=== PATIENT | male | born 1980 | race Caucasian/White ===

== ENCOUNTER → 2018-06-22 | Outpatient (CLI) | payer BC ==
--- NOTE | 2018-06-22 14:33 | MR ---
EXAMINATION TYPE: MR brain wo con DATE OF EXAM: 06/22/2018 COMPARISON: NONE HISTORY: Migraine without aura TECHNIQUE: Multiplanar, multisequence images of the brain and brainstem is performed without intravenous contras t. FINDINGS: Diffusion weighted images demonstrate no evidence of a recent infarct or other diffusion ab normality. There is no extra-axial fluid collection. There is mild nonspecific T2/FLAIR hyperintensi ty in the periventricular white matter any periatrial location within the parietal lobe such as on FL AIR and axial fat sat image 21. The ventricular system and cisternal spaces are normal in size and a ppearance. The brain volume is age appropriate. Midline structures demonstrate normal morphology. The craniocervical junction appears within normal limits. The dural venous sinuses appear patent. The globes are intact. There is scant mucosal thicken ing seen within the ethmoid sinuses and minimal leftward nasal septal deviation with a small leftward nasal septal spur. IMPRESSION: 1. Mild periventricular nonspecific white matter change within the parietal lobes, right greater than left. Considerations are for multiple sclerosis, other demyelinating disease given the patient's age or vasculitides. 2. Mild ethmoid paranasal sinus disease.
== END ==
LOC: RADMRIMAIN 12:32
PROVIDERS: ATTEND Psychiatry & Neurology Neurology
DX: R90.89 Other abnormal findings on diagnostic imaging of central nervous system (principal)
CPT/HCPCS: 70551

== ENCOUNTER 2019-06-10 19:38 | Inpatient (IN) | payer BC, OTHER ==
[2019-06-10] MEDS ORDERED: BUTALB/APAP/CAFF 50-325-40MG TAB PO PRN (22:13)
[2019-06-10] MEDS ORDERED: ACETAMINOPHEN TAB 325 MG TAB PO PRN (22:14)
[2019-06-10] MEDS: SODIUM CHLORIDE 0.9% 1,000 ML IV SCH (22:25)
[2019-06-10] MEDS: HYDROcodone/APAP 5-325MG 1 EACH TAB PO PRN (23:34)
[2019-06-11] MEDS: HYDROcodone/APAP 5-325MG 1 EACH TAB PO PRN (06:26)
[2019-06-11 07:07] LABS: Basophils # (A) 0.1 k/uL (0-0.2); Basophils % (A) 1 %; Eosinophils # (A) 0.3 k/uL (0-0.7); Eosinophils % (A) 3 %; HCT 44.8 % (39.0-53.0); HGB 14.1 gm/dL (13.0-17.5); Lymphocytes # (A) 2.8 k/uL (1.0-4.8); Lymphocytes % (A) 29 %; MCH 30.6 pg (25.0-35.0); MCHC 31.4 g/dL (31.0-37.0); MCV 97.3 fL (80.0-100.0); Monocytes # (A) 0.7 k/uL (0-1.0); Monocytes % (A) 7 %; Neutrophils # (A) 5.4 k/uL (1.3-7.7); Neutrophils % (A) 58 %; Platelet Count 195 k/uL (150-450); RDW 12.3 % (11.5-15.5); WBC 9.3 k/uL (3.8-10.6)
[2019-06-11 07:29] LABS: ALT 15 U/L (4-49); AST 25 U/L (17-59); African American GFR (CKD) >90 (>60 ml/min/1.73 sqM); Albumin 4.1 g/dL (3.5-5.0); Alkaline Phosphatase 58 U/L (38-126); Anion Gap 10 mmol/L; Blood Urea Nitrogen 18 mg/dL (9-20); Calcium 8.9 mg/dL (8.4-10.2); Carbon Dioxide 22 mmol/L (22-30); Chloride 110 mmol/L (98-107); Glucose 82 mg/dL (74-99); Non-African American GFR(CKD) >90 (>60 ml/min/1.73 sqM); Potassium 4.6 mmol/L (3.5-5.1); Sodium 142 mmol/L (137-145); Total Bilirubin 0.7 mg/dL (0.2-1.3); Total Protein 7.1 g/dL (6.3-8.2)
--- NOTE | 2019-06-11 08:40 | P.CRDCN ---
History of Present Illness Consult date: 06/11/19 Consult reason: sycope Chief complaint: Syncope History of present illness: This is a 38-year-old gentleman with history of migraines, nicotine dependence, patient's smokes at least one pack of cigarettes per day, he also has a marijuana license, and smokes marijuana because of the persistent migraines. He states that he used to take Imitrex in the past but because of the cost he had to stop taking that. Patient presented to [facility] after experiencing a syncopal episode. According to the patient, on Monday he was getting ready to walk down the stairs, he remembers putting his hand out to hold onto the railing, the next thing he recalls was his son waking him up at the bottom of the stairs area he had also a second subsequent episode with no warning prior to passing out. He denies any dizziness or lightheadedness, no palpitations. But he does state on each occasion that he had a migraine headache on each occasion. Patient states that he is somewhat foggy and disoriented when he wakes up, he knows he is at home, does not lose bowel or bladder function. EKG on presentation to [facility] showed a normal sinus rhythm with no acute changes noted. A CT of the spine was performed which did not reveal any acute findings. Blood pressure on arrival there 129/78, heart rate in the 80s, afebrile. Patient also underwent a CT of the head which did not reveal any acute findings. His UA was normal magnesium 2.0, sodium 141, potassium 3.8, chloride 106, CO2 25, creatinine 0.9. White blood cell count 10.2, hemoglobin 13.9, platelet count 263. Drug screen was also negative. Blu roy was transferred to [facility] for further evaluation and treatment. Blood pressure on arrival here 130/80, heart rate in the 70s, 99% on room air. White blood cell count 9.3, hemoglobin 14.1, platelet count 195. Sodium 142, potassium 4.6, BUN 18, creatinine 0.7. Troponin 0.012. Past Medical History Additional Past Medical History / Comment(s): brachial plexus disorder right arm;migraines History of Any Multi-Drug Resistant Organisms: None Reported Past Surgical History: No Surgical Hx Reported Past Anesthesia/Blood Transfusion Reactions: No Reported Reaction Past Psychological History: Anxiety, Depression Smoking Status: Current every day smoker Medications and Allergies Home Medications Medication Instructions Recorded Confirmed Type Acetaminophen Tab [Tylenol Tab] 650 mg PO Q6H PRN 06/10/19 06/10/19 History Butalb/APAP/Caff 50-325-40Mg 1 - 2 tab PO Q4H PRN 06/10/19 06/10/19 History [Fioricet 50-325-40] Ibuprofen 400 mg PO Q6H PRN 06/10/19 06/10/19 History Naproxen [Naprosyn] 500 mg PO BID PRN 06/10/19 06/10/19 History Ranitidine HCl 150 mg PO HS 06/10/19 06/10/19 History Topiramate [Topamax] 100 mg PO BID 06/10/19 06/10/19 History Allergies Allergy/AdvReac Type Severity Reaction Status Date / Time No Known Allergies Allergy Verified 06/10/19 22:36 Physical Exam Vitals: Vital Signs Temp Pulse Resp BP Pulse Ox 06/11/19 08:00 98.6 F 68 19 106/66 100 06/11/19 03:33 97.7 F 73 16 104/58 96 06/10/19 22:57 98.2 F 75 18 130/82 99 Intake and Output 06/10/19 06/11/19 06/11/19 22:59 06:59 14:59 Intake Total 222 150 Balance 222 150 Intake: Intake, IV Titration 150 Amount Sodium Chloride 0.9% 1, 150 000 ml @ 50 mls/hr IV . Q20H [facility] Rx#:[id number] Oral 222 Other: Weight 85.3 kg 85.2 kg PHYSICAL EXAMINATION: GENERAL: 38-year-old gentleman in no acute distress at the time of my examination HEENT: Head is atraumatic, normocephalic. Pupils equal, round. Sclera anicteric. Conjunctiva are clear. Mucous membranes of the mouth are moist. Neck is supple. There is no elevated jugular venous pressure. No carotid bruit is heard. HEART EXAMINATION: Heart S1, S2 normal. No murmur or gallop heard. CHEST EXAMINATION: Lungs are clear to auscultation and precussion. No chest wall tenderness is noted on palpation or with deep breathing. ABDOMEN: Soft, nontender. Bowel sounds are heard. No organomegaly noted. EXTREMITIES: 2+ peripheral pulses with no evidence of peripheral edema and no calf tenderness noted. NEUROLOGIC patient is awake, alert and oriented 3 . He does complain of a mild headache this morning. . Results 06/11/19 06:16 06/11/19 06:16 Cardiac Enzymes 06/10/19 06/11/19 Range/Units 22:49 06:16 AST 25 (17-59) U/L Troponin I <0.012 (0.000-0.034) ng/mL CBC 06/11/19 Range/Units 06:16 WBC 9.3 (3.8-10.6) k/uL RBC 4.60 (4.30-5.90) m/uL Hgb 14.1 (13.0-17.5) gm/dL Hct 44.8 (39.0-53.0) % Plt Count 195 (150-450) k/uL Comprehensive Metabolic Panel 06/11/19 Range/Units 06:16 Sodium 142 (137-145) mmol/L Potassium 4.6 (3.5-5.1) mmol/L Chloride 110 H (98-107) mmol/L Carbon Dioxide 22 (22-30) mmol/L BUN 18 (9-20) mg/dL Creatinine 0.79 (0.66-1.25) mg/dL Glucose 82 (74-99) mg/dL Calcium 8.9 (8.4-10.2) mg/dL AST 25 (17-59) U/L ALT 15 (4-49) U/L Alkaline Phosphatase 58 (38-126) U/L Total Protein 7.1 (6.3-8.2) g/dL Albumin 4.1 (3.5-5.0) g/dL Current Medications Generic Name Dose Route Start Last Admin Trade Name Freq PRN Reason Stop Dose Admin Acetaminophen 325 mg 06/10/19 22:14 Tylenol Tab PO Q6HR PRN Fever and/ or Pain Acetaminophen/Butalbital/Caffeine 1 each 06/10/19 22:13 06/10/19 22:19 Fioricet 50-325-40 PO 1 each Q4HR PRN Administration Headache Hydrocodone Bitart/Acetaminophen 1 each 06/10/19 23:19 06/11/19 06:26 [place] 5-325 PO 1 each Q6HR PRN Administration Pain Famotidine 20 mg 06/11/19 09:00 Pepcid IV Q12HR KE[facility] Heparin Sodium (Porcine) 5,000 unit 06/11/19 09:00 Heparin SQ Q12HR KE[facility] Sodium Chloride 1,000 mls @ 50 mls/hr 06/10/19 22:15 06/10/19 22:25 Saline 0.9% IV 50 mls/hr .Q20H KEKE Administration Topiramate 100 mg 06/11/19 09:00 Topamax PO DAILY KEKE Intake and Output 06/10/19 06/11/19 06/11/19 22:59 06:59 14:59 Intake Total 222 150 Balance 222 150 Intake: Intake, IV Titration 150 Amount Sodium Chloride 0.9% 1, 150 000 ml @ 50 mls/hr IV . Q20H [facility] Rx#:[id number] Oral 222 Other: Weight 85.3 kg 85.2 kg 06/11/19 06:16 06/11/19 06:16 EKG Interpretations (text) EKG performed at [facility] shows a normal sinus rhythm with no acute changes. Assessment and Plan Plan: Assessment and plan #1 syncopal episode 2, each episode associated with migraine headache, rule out cardiac causes #2 nicotine dependence #3 marijuana use #4 brachial plexus Plan We will obtain an echocardiogram with Doppler study, obtain orthostatic blood pressure and heart rate every shift. Monitor for any tachycardia or bradycardia arrhythmias. Patient may also benefit from a tilt table test. Further recommendations to follow. DNP note has been reviewed, I agree with a documented findings and plan of care. Patient was seen and examined.
[2019-06-11] MEDS ORDERED: FAMOTIDINE 20 MG/2 ML VIAL IV SCH (09:00)
[2019-06-11] MEDS ORDERED: TOPIRAMATE 100 MG TAB PO SCH ×2 (09:00→21:00)
[2019-06-11] MEDS: HEPARIN SODIUM,PORCINE 5,000 UNIT/ML 1 ML VIAL SQ SCH ×2 (10:28→20:18)
[2019-06-11] MEDS ORDERED: diphenhydrAMINE 25 MG CAP PO STA (11:22)
[2019-06-11] MEDS ORDERED: SUMAtriptan SUCCINATE 6 MG/0.5 ML VIAL SQ STA (11:25)
[2019-06-11] MEDS: METOCLOPRAMIDE 5 MG/ML 2 ML VIAL IVP SCH ×3 (12:41→23:18)
--- NOTE | 2019-06-11 13:24 | P.HPIM ---
History of Present Illness 38-year-old male came in because of her syncope patient in couple syncopal episodes. These syncopal episodes were followed by severe headache patient does have history of migraine with aura. Patient does have photophobia. Patient is on multiple medications with uncontrolled migraine. History of chronic migraines as he has migraine most of the days in a month. Patient is on 2 nonsteroidal anti-inflammatories along with Fioricet [place] Topamax for migraine. Patient denied any fever chills. Patient had an dysuria. EKG did not show any significant acute ST-T wave changes echocardiogram is being obtained computed tomography scan of the spine was opted which did not show any significant abnormality computed tomography scan was opted because of his fall from syncope patient fall is preceded by lightheadedness and he didn't have an of time to sit down for that he ended up having a syncopal episode which lasted for few s econds. Patient denied any seizure-like activity. CT of the head did not show any significant abnormality either. Review of Systems REVIEW OF SYSTEMS: CONSTITUTIONAL: No fever, no malaise, no fatigue. HEENT: No recent visual problems or hearing problems. Denied any sore throat. CARDIOVASCULAR: No chest pain, orthopnea, PND, no palpitations. PULMONARY: No shortness of breath, no cough, no hemoptysis. GASTROINTESTINAL: No diarrhea, no nausea, no vomiting, no abdominal pain. NEUROLOGICAL: No headaches, no weakness, no numbness. HEMATOLOGICAL: Denies any bleeding or petechiae. GENITOURINARY: Denies any burning micturition, frequency, or urgency. MUSCULOSKELETAL/RHEUMATOLOGICAL: Denies any joint pain, swelling, or any muscle pain. ENDOCRINE: Denies any polyuria or polydipsia. The rest of the 14-point review of systems is negative. Past Medical History Additional Past Medical History / Comment(s): brachial plexus disorder right arm;migraines History of Any Multi-Drug Resistant Organisms: None Reported Past Surgical History: No Surgical Hx Reported Past Anesthesia/Blood Transfusion Reactions: No Reported Reaction Past Psychological History: Anxiety, Depression Smoking Status: Current every day smoker Medications and Allergies Home Medications Medication Instructions Recorded Confirmed Type Acetaminophen Tab [Tylenol Tab] 650 mg PO Q6H PRN 06/10/19 06/10/19 History Butalb/APAP/Caff 50-325-40Mg 1 - 2 tab PO Q4H PRN 06/10/19 06/10/19 History [Fioricet 50-325-40] Ibuprofen 400 mg PO Q6H PRN 06/10/19 06/10/19 History Naproxen [Naprosyn] 500 mg PO BID PRN 06/10/19 06/10/19 History Ranitidine HCl 150 mg PO HS 06/10/19 06/10/19 History Topiramate [Topamax] 100 mg PO BID 06/10/19 06/10/19 History Allergies Allergy/AdvReac Type Severity Reaction Status Date / Time No Known Allergies Allergy Verified 06/10/19 22:36 Physical Exam Vitals: Vital Signs Temp Pulse Resp BP BP BP BP 06/11/19 12:57 71 134/88 06/11/19 12:46 72 17 06/11/19 12:00 98.4 F 72 17 116/70 06/11/19 08:55 92 129/82 06/11/19 08:50 103 H 133/75 06/11/19 08:00 98.6 F 68 19 106/66 06/11/19 03:33 97.7 F 73 16 104/58 06/10/19 22:57 98.2 F 75 18 130/82 Pulse Ox 06/11/19 12:57 06/11/19 12:46 06/11/19 12:00 99 06/11/19 08:55 06/11/19 08:50 06/11/19 08:00 100 06/11/19 03:33 96 06/10/19 22:57 99 Intake and Output 06/10/19 06/11/19 06/11/19 22:59 06:59 14:59 Intake Total 222 150 240 Balance 222 150 240 Intake: Intake, IV Titration 150 Amount Sodium Chloride 0.9% 1, 150 000 ml @ 50 mls/hr IV . Q20H [facility] Rx#:[id number] Oral 222 240 Other: Voiding Method Toilet Weight 85.3 kg 85.2 kg PHYSICAL EXAMINATION: GENERAL: The patient is alert and oriented x3, not in any acute distress. Well developed, well nourished. HEENT: Pupils are round and equally reacting to light. EOMI. No scleral icterus. No conjunctival pallor. Normocephalic, atraumatic. No pharyngeal erythema. No thyromegaly. CARDIOVASCULAR: S1 and S2 present. No murmurs, rubs, or gallops. PULMONARY: Chest is clear to auscultation, no wheezing or crackles. ABDOMEN: Soft, nontender, nondistended, normoactive bowel sounds. No palpable organomegaly. MUSCULOSKELETAL: No joint swelling or deformity. EXTREMITIES: No cyanosis, clubbing, or pedal edema. NEUROLOGICAL: Gross neurological examination did not reveal any focal deficits. SKIN: No rashes. Results CBC & Chem 7: 06/11/19 06:16 06/11/19 06:16 Labs: Abnormal Lab Results - Last 24 Hours (Table) 06/11/19 Range/Units 06:16 Chloride 110 H (98-107) mmol/L Thrombosis Risk Factor Assmnt - Choose All That Apply Each Factor Represents 1 point: Obesity (BMI >25) Thrombosis Risk Factor Assessment Total Risk Factor Score: 1 Thrombosis Risk Factor Assessment Level: Low Risk Assessment and Plan Plan: -Syncope: Most probably related to migraine itself as his symptoms of migraine followed his syncopal episode. Anyway patient is being evaluated by cardiology and the echocardiogram is being up and patient will be monitored in telemetry. -Migraine uncontrolled chronic opiates and Fioricet will be discontinued patient will be given intravenous Reglan as we don't have intravenous Compazine here along with Benadryl and the patient will be given an injection of sumatriptan. Neurology was already consulted. Patient will be contacting continued on approximately this can you Motrin. Patient will be continued on not Topamax. -Nicotine dependence: Counseling was provided and this can precipitate his migraine attacks -Marijuana use: Counseling was provided
--- NOTE | 2019-06-11 15:52 | P.CNNES ---
History of Present Illness Consult date: 06/11/19 Reason for Consult: syncope Chief complaint: migraine and syncope History of Present Illness: HISTORY OF PRESENT ILLNESS: Thank you for allowing me to evaluate Mr. Marlon Prater. Mr. Prater is a 38 year-old man with PMhx of migraines and brachial plexus disorder who presented to [facility] for syncopal episodes. Patient states that last Monday, on 06/07/2019, patient had taken a shower and was about to walk down the stairs when he felt lightheaded suddenly, but he passed out almost immediate and he found himself on the floor. He got bruised on his L shoulder and leg, but did not seek medical attention at the time. Patient was having about 7-8/10 headache at the time. Yesterday, he was on his way to the living room from the kitchen when he again felt lightheaded, and when he woke up, he was on the floor. He was not confused when he woke up, he was able to recognize his kids, no tongue biting or urinary/bowel incontinence, his almost 3-year-old saw and when his girlfriend walked into the house, child said that "dad fell." Patient's girlfriend has a history of seizures, and previously, when she had an episode, the child had said, "she was shaking all over." In regards to the patient's fall, child just said he fell. Patient believes he was down for definitely less than 30 minutes but he's unsure exactly how long. Patient started having migraines about 2 years ago. No family history of migraines. Patient was followed at Dr. Singer's office, but due to his living situation (lives about 1 hour away, and his girlfriend does not drive, and when he doesn't feel well, he cannot drive himself to the clinic), he often missed his appointment. Patient was started on topamax, but as it wasn't helping him, he was going down on the med. At this time, taking Topamax 100mg once a day. Patient states Imitrex 50mg has helped him previously, but couldn't afford it. Patient has not taken any other migraine meds. Denies any recent sickness, fever, nausea, vomiting, coughing, diarrhea, constipation. Patient also with photophobia and difficulty sleeping. Denies heart palpitations, chest pain. PAST MEDICAL HISTORY: Brachial plexus disorder in RUE, migraines, anxiety, depression PAST SURGICAL HISTORY: None reported HOME MEDICATIONS: Fioricet PRN, topamax 100mg BID, ranitidine ALLERGIES: NKDA SOCIAL HISTORY: Current everyday smoker, smokes pot. Denies EtOH and other illicit drug abuse history REVIEW OF SYSTEMS: The 14 systems are reviewed and no additional points are identified compared to the review of systems documented history and physical PHYSICAL EXAMINATION: VITAL SIGNS: T 98.4 HR 72 RR 17 BP 116/70 O2 sat 99% on RA GEN.: NAD, pleasant and cooperative HEENT: NCAT, sclera without icterus NECK: Supple, no carotid bruit SKIN AND EXTREMITIES: Warm to touch, no edema NEURO: MENTAL STATUS: Patient alert and oriented to self, place, time. Able to name the current president. Speech fluent, able to name and repeat, following all commands readily. No right and left disorientation, extinction to double simultaneous stimulation, finger agnosia, neglect. CRANIAL NERVES II THROUGH XII: II: Pupils are equal and reactive to light symmetrically. Visual matt are intact. III, IV, : No ptosis. Extraocular movements full. No nystagmus. V: Facial sensation intact from V1-3. VII. No clear facial asymmetry. VIII: Hearing intact to finger rub bilaterally. IX, X: Symmetric palate elevation. XI: Shoulder shrug intact. XII: Tongue midline without fasciculation or atrophy. MOTOR: Normal bulk/tone. No pronator drift or tremor. Strength is 5/5 throughout except RUE which is about 4+/5 (from his previous RUE injury that caused damage to his brachial plexus) SENSORY: Decreased sensation of almost the entire RUE since the brachial plexus injury, worse in his hand and lateral-posterior forearm. REFLEXES: 2+ throughout. Toes are downgoing. COORDINATION: Finger to nose intact. No dysmetria. GAIT: Narrow-based and stable. Able to toe/heel/tandem walk DIAGNOSTIC TESTING: LABORATORY: WBC 9.3 Hgb 14.1 Platelet 195 Na 142 K 4.6 Cl 110 CO2 22 BUN 18 Cr 0.79 glucose 82 AST 25 ALT 15 AlkPhos 58 Trop <0.012 IMAGING: MR brain w/o contrast 06/22/2018: Mild periventricular nonspecific white matter change within the parietal lobes, R greater than L. Mild ethmoid paranasal sinus disease ASSESSMENT: 38 year-old man with PMhx of migraines and brachial plexus disorder who presented to [facility] for syncopal episodes associated with severe migraine. There is a subgroup of patients who report migraine headaches immediately preceding or following syncope, but cannot rule out seizure at this time. RECOMMENDATIONS: 1. Will obtain routine EEG 2. Will start patient on MgOx 400mg BID. Discussed with patient about purchasing Vitamin B2 (riboflavin) 400mg qday for migraine prophylaxis 3. Will start patient on amitriptyline 25mg qhs. Can increase to 50mg qhs after 1 week if with no side effects such as heart palpitations, chest pain, dry mouth, constipation, dizziness. 4. Patient has his tapering off schedule of topamax. 5. Patient needs follow up with Dr. Singer within 3-4 weeks of discharge 6. Will obtain baseline EKG. 7. Neurology will continue to follow Past Medical History Additional Past Medical History / Comment(s): brachial plexus disorder right arm;migraines History of Any Multi-Drug Resistant Organisms: None Reported Past Surgical History: No Surgical Hx Reported Past Anesthesia/Blood Transfusion Reactions: No Reported Reaction Past Psychological History: Anxiety, Depression Smoking Status: Current every day smoker Medications and Allergies Home Medications Medication Instructions Recorded Confirmed Type Acetaminophen Tab [Tylenol Tab] 650 mg PO Q6H PRN 06/10/19 06/10/19 History Butalb/APAP/Caff 50-325-40Mg 1 - 2 tab PO Q4H PRN 06/10/19 06/10/19 History [Fioricet 50-325-40] Ibuprofen 400 mg PO Q6H PRN 06/10/19 06/10/19 History Naproxen [Naprosyn] 500 mg PO BID PRN 06/10/19 06/10/19 History Ranitidine HCl 150 mg PO HS 06/10/19 06/10/19 History Topiramate [Topamax] 100 mg PO BID 06/10/19 06/10/19 History Allergies Allergy/AdvReac Type Severity Reaction Status Date / Time No Known Allergies Allergy Verified 06/10/19 22:36 Physical Examination - Vital Signs Vital Signs: Vital Signs Temp Pulse Resp BP BP BP BP 06/11/19 12:57 71 134/88 06/11/19 12:46 72 17 06/11/19 12:00 98.4 F 72 17 116/70 06/11/19 08:55 92 129/82 06/11/19 08:50 103 H 133/75 06/11/19 08:00 98.6 F 68 19 106/66 06/11/19 03:33 97.7 F 73 16 104/58 06/10/19 22:57 98.2 F 75 18 130/82 Pulse Ox 06/11/19 12:57 06/11/19 12:46 06/11/19 12:00 99 06/11/19 08:55 06/11/19 08:50 06/11/19 08:00 100 06/11/19 03:33 96 06/10/19 22:57 99 Intake and Output 06/10/19 06/11/19 06/11/19 22:59 06:59 14:59 Intake Total 222 150 240 Balance 222 150 240 Intake: Intake, IV Titration 150 Amount Sodium Chloride 0.9% 1, 150 000 ml @ 50 mls/hr IV . Q20H [facility] Rx#:[id number] Oral 222 240 Other: Voiding Method Toilet Weight 85.3 kg 85.2 kg Results - Laboratory Findings CBC and BMP: 06/11/19 06:16 06/11/19 06:16 Abnormal Lab Findings: Abnormal Labs 06/11/19 06:16 Chloride 110 H
--- NOTE | 2019-06-11 19:28 | ECHOF ---
Referral Reason:syncope MEASUREMENTS -------- HEIGHT: 170.2 cm WEIGHT: 84.8 kg BP: 106/66 RVIDd: 3.4 cm (< 3.3) IVSd: 1.2 cm (0.6 - 1.1) LVIDd: 4.5 cm (3.9 - 5.3) LVPWd: 1.3 cm (0.6 - 1.1) IVSs: 1.3 cm LVIDs: 3.2 cm LVPWs: 1.7 cm LA Diam: 4.2 cm (2.7 - 3.8) LAESV Index (A-L): 37.42 ml/m Ao Diam: 3.1 cm (2.0 - 3.7) AV Cusp: 2.3 cm (1.5 - 2.6) LA Diam: 4.3 cm (2.7 - 3.8) MV EXCURSION: 22.907 mm (> 18.000) MV EF SLOPE: 152 mm/s (70 - 150) EPSS: 0.4 cm MV E Trey: 0.86 m/s MV DecT: 180 ms MV A Trey: 0.51 m/s MV E/A Ratio: 1.69 RAP: 5.00 mmHg RVSP: 24.48 mmHg FINDINGS -------- Sinus rhythm. This was a technically good study. LV size, wall thickness and systolic function are normal, with an EF greater than 55%. The left becca tricular size is normal. Overall left ventricular systolic function is normal with, an EF between 5 5 - 60 %. The diastolic filling pattern is normal for the age of the patient 7.10. The right ventricle is normal in size. The left atrium is mildly dilated. LA is moderately dilated 34-39 ml/m2 The right atrial size is normal. The aortic valve is trileaflet, and appears structurally normal. No aortic stenosis or regurgitation. Mild mitral annular calcification present. Mild mitral regurgitation is present. Mild tricuspid regurgitation present. Right ventricular systolic pressure is normal at < 35 mmHg. There is no evidence of pulmonary hypertension. There is no pulmonic regurgitation present. The aortic root size is normal. There is no pericardial effusion. CONCLUSIONS -------- 1. Sinus rhythm. 2. This was a technically good study. 3. LV size, wall thickness and systolic function are normal, with an EF greater than 55%. 4. The left ventricular size is normal. 5. Overall left ventricular systolic function is normal with, an EF between 55 - 60 %. 6. The diastolic filling pattern is normal for the age of the patient 7.10 7. The right ventricle is normal in size. 8. The left atrium is mildly dilated. 9. LA is moderately dilated 34-39 ml/m2 10. The right atrial size is normal. 11. The aortic valve is trileaflet, and appears structurally normal. No aortic stenosis or regurgitat ion. 12. Mild mitral annular calcification present. 13. Mild mitral regurgitation is present. 14. Mild tricuspid regurgitation present. 15. Right ventricular systolic pressure is normal at < 35 mmHg. 16. There is no evidence of pulmonary hypertension. 17. There is no pulmonic regurgitation present. 18. The aortic root size is normal. 19. There is no pericardial effusion. PHARMACY SERVICES DIRECTOR: Tiara Welch RDCS
[2019-06-11] MEDS: SODIUM CHLORIDE 0.9% 1,000 ML IV SCH (19:43)
[2019-06-11] MEDS: diphenhydrAMINE 25 MG CAP PO SCH (20:18)
[2019-06-11] MEDS: FAMOTIDINE 20 MG TAB PO SCH (20:18)
[2019-06-11] MEDS: MAGNESIUM OXIDE 400 MG TAB PO SCH (20:18)
[2019-06-11] MEDS ORDERED: NON FORMULARY DRUG (Ranitidine Hcl [Ranitidine Hcl] 150 MG) PO SCH (21:00)
[2019-06-11] MEDS ORDERED: AMITRIPTYLINE HCL 25 MG TAB PO SCH (21:00)
[2019-06-11] MEDS: NAPROXEN 250 MG TAB PO PRN (22:06)
[2019-06-12] MEDS: METOCLOPRAMIDE 5 MG/ML 2 ML VIAL IVP SCH ×2 (05:01→12:26)
[2019-06-12] MEDS: MAGNESIUM OXIDE 400 MG TAB PO SCH (09:30)
[2019-06-12] MEDS: diphenhydrAMINE 25 MG CAP PO SCH (09:30)
[2019-06-12] MEDS: FAMOTIDINE 20 MG TAB PO SCH (09:30)
[2019-06-12] MEDS: HEPARIN SODIUM,PORCINE 5,000 UNIT/ML 1 ML VIAL SQ SCH (09:30)
[2019-06-12] MEDS: NAPROXEN 250 MG TAB PO PRN (09:44)
[2019-06-12 11:38] VITALS: RESP 18; TEMP 97.6
--- NOTE | 2019-06-12 14:07 | P.PN ---
Subjective Progress Note Date: 06/12/19 This is a 38-year-old gentleman with history of migraines, nicotine dependence, patient's smokes at least one pack of cigarettes per day, he also has a marijuana license, and smokes marijuana because of the persistent migraines. He states that he used to take Imitrex in the past but because of the cost he had to stop taking that. Patient presented to [facility] after experiencing a syncopal episode. According to the patient, on Monday he was getting ready to walk down the stairs, he remembers putting his hand out to hold onto the railing, the next thing he recalls was his son waking him up at the bottom of the stairs area he had also a second subsequent episode with no warning prior to passing out. He denies any dizziness or lightheadedness, no palpitations. But he does state on each occasion that he had a migraine headache on each occasion. Patient states that he is somewhat foggy and disoriented when he wakes up, he knows he is at home, does not lose bowel or bladder function. EKG on presentation to [facility] showed a normal sinus rhythm with no acute changes noted. A CT of the spine was performed which did not reveal any acute findings. Blood pressure on arrival there 129/78, heart rate in the 80s, afebrile. Patient also underwent a CT of the head which did not reveal any acute findings. His UA was normal magnesium 2.0, sodium 141, potassium 3.8, chloride 106, CO2 25, creatinine 0.9. White blood cell count 10.2, hemoglobin 13.9, platelet count 263. Drug screen was also negative. Patient was transferred to [facility] for further evaluation and treatment. Blood pressure on arrival here 130/80, heart rate in the 70s, 99% on room air. White blood cell count 9.3, hemoglobin 14.1, platelet count 195. Sodium 142, potassium 4.6, BUN 18, creatinine 0.7. Troponin 0.012. 06/12/2019 Patient seen and examined this morning, blood pressure 116/70 with a heart rate in the 70s, 100% on room air. Orthostatics are negative. No tachycardia or bradycardia arrhythmias have been noted on the monitor. Echocardiogram with Doppler study revealed a normal left ventricular systolic function. Objective - Vital Signs Vital signs: Vital Signs Temp 97.6 F 06/12/19 11:37 Pulse 76 06/12/19 11:37 Resp 18 06/12/19 11:37 BP 117/73 06/12/19 11:37 Pulse Ox 100 06/12/19 11:37 Intake & Output 06/11/19 06/12/19 06/12/19 18:59 06:59 18:59 Intake Total 960 1460 Output Total 880 Balance 960 -880 1460 Weight 86.7 kg Intake: Oral 960 1460 Output: Urine 880 Other: Voiding Method Toilet Toilet Toilet # Voids 3 1 # Bowel Movements 1 - Exam PHYSICAL EXAMINATION: GENERAL: 38-year-old gentleman in no acute distress at the time of my examination HEENT: Head is atraumatic, normocephalic. Pupils equal, round. Sclera anicteric. Conjunctiva are clear. Mucous membranes of the mouth are moist. Neck is supple. There is no elevated jugular venous pressure. No carotid bruit is heard. HEART EXAMINATION: Heart S1, S2 normal. No murmur or gallop heard. CHEST EXAMINATION: Lungs are clear to auscultation and precussion. No chest wall tenderness is noted on palpation or with deep breathing. ABDOMEN: Soft, nontender. Bowel sounds are heard. No organomegaly noted. EXTREMITIES: 2+ peripheral pulses with no evidence of peripheral edema and no calf tenderness noted. NEUROLOGIC patient is awake, alert and oriented 3 . - Labs CBC & Chem 7: 06/11/19 06:16 06/11/19 06:16 Assessment and Plan Plan: Assessment and plan #1 syncopal episode 2, each episode associated with migraine headache, rule out cardiac causes #2 nicotine dependence #3 marijuana use #4 brachial plexus Plan Echocardiogram with Doppler study revealed a normal left ventricular systolic function. No significant orthostatic documented. No tachycardia or bradycardia arrhythmias noted. From cardiology's perspective, the patient may be able to be discharged home today. We'll make him a follow-up appointment to see Dr. Ware in the office post discharge. DNP note has been reviewed, I agree with a documented findings and plan of care. Patient was seen and examined.
[2019-06-12 14:11] VITALS: BP 120/73
[2019-06-12 14:59] VITALS: PULSE 75
--- NOTE | 2019-06-12 15:31 | P.PN ---
Progress Note - Text Progress Note Date: 06/12/19 SUBJECTIVE/INTERVAL EVENTS: No acute overnight events. Patient continues to complain of 7-8/10 pain. EKG reviewed, normal SR. Patient would like to go home to see his son as he doesn't get to see his son very often. PHYSICAL EXAMINATION: VITAL SIGNS: HR 68 RR 18 BP 99/67 O2 sat 99% on RA GEN.: NAD, pleasant and cooperative HEENT: NCAT, sclera without icterus NECK: Supple, no carotid bruit SKIN AND EXTREMITIES: Warm to touch, no edema NEURO: MENTAL STATUS: Patient alert and oriented to self, place, time. Able to name the current president. Speech fluent, able to name and repeat, following all commands readily. No right and left disorientation, extinction to double simultaneous stimulation, finger agnosia, neglect. CRANIAL NERVES II THROUGH XII: II: Pupils are equal and reactive to light symmetrically. Visual matt are intact. III, IV, : No ptosis. Extraocular movements full. No nystagmus. V: Facial sensation intact from V1-3. VII. No clear facial asymmetry. VIII: Hearing intact to finger rub bilaterally. IX, X: Symmetric palate elevation. XI: Shoulder shrug intact. XII: Tongue midline without fasciculation or atrophy. MOTOR: Normal bulk/tone. No pronator drift or tremor. Strength is 5/5 throughout except RUE which is about 4+/5 (from his previous RUE injury that caused damage to his brachial plexus) SENSORY: Decreased sensation of almost the entire RUE since the brachial plexus injury, worse in his hand and lateral-posterior forearm. REFLEXES: 2+ throughout. Toes are downgoing. COORDINATION: Finger to nose intact. No dysmetria. GAIT: Narrow-based and stable. Able to toe/heel/tandem walk DIAGNOSTIC TESTING: LABORATORY: WBC 9.3 Hgb 14.1 Platelet 195 Na 142 K 4.6 Cl 110 CO2 22 BUN 18 Cr 0.79 glucose 82 AST 25 ALT 15 AlkPhos 58 Trop <0.012 IMAGING: MR brain w/o contrast 06/22/2018: Mild periventricular nonspecific white matter change within the parietal lobes, R greater than L. Mild ethmoid paranasal sinus disease TTE 06/11/2019: SR. LV size normal, EF >55%. RV is normal in size. LA is moderately dilated. RA size is normal. ASSESSMENT: 38 year-old man with PMhx of migraines and brachial plexus disorder who presented to [facility] for syncopal episodes associated with severe migraine. There is a subgroup of patients who report migraine headaches immediately preceding or following syncope, but cannot rule out seizure at this time. RECOMMENDATIONS: 1. Will obtain routine EEG 2. c/w MgOx 400mg BID. Discussed with patient about purchasing Vitamin B2 (ri boflavin) 400mg qday for migraine prophylaxis 3. c/w amitriptyline 25mg qhs. Can increase to 50mg qhs after 1 week if with no side effects such as heart palpitations, chest pain, dry mouth, constipation, dizziness. 4. Patient has his tapering off schedule of topamax. 5. Patient needs follow up with Dr. Singer within 3-4 weeks of discharge 6. Discussed seizure precautions with patient. Patient usually stays home when he doesn't feel good and is having a headache. Agrees to limit his driving. Pt does not take a bath but showers. Limit swimming, using heavy/dangerous machinery, climbing ladders. 7. If patient still having severe headache, can give another dose of migraine cocktail. Patient stable for discharge after EEG from neuro perspective. Neurology will sign off at this time. Please contact with additional questions or concerns.
[2019-06-12] MEDS ORDERED: TOPIRAMATE 100 MG TAB PO SCH (21:00)
--- NOTE | 2019-06-13 08:22 | P.DS ---
Providers Date of admission: 06/10/19 21:31 Expected date of discharge: 06/12/19 Attending physician: Carlos Alberto Morales MD Consults: 06/10/19 22:11 Consult Physician Routine Consulting Provider: Wang Ware Consult Reason/Comments: syncope Do you want consulting provider notified?: Yes, Notify in am Placement Type Exists?: Yes 06/10/19 22:12 Consult Physician Routine Consulting Provider: Ghada Chavarria Consult Reason/Comments: syncope Do you want consulting provider notified?: Yes Primary care physician: Stated None Hospital Course: Final diagnosis -Syncope: Most probably related to migraine itself as his symptoms of migraine followed his syncopal episode. -Migraine uncontrolled chronic -Nicotine dependence -Marijuana use Discharge disposition Patient is being discharged in a stable condition with guarded prognosis to home and will follow-up with primary care provider Dr. Norberto Davies in [place] upon discharge. Patient will also follow-up with cardiology in the outpatient setting in one week. Patient will need to follow-up and reestablishment Dr. Renae in the outpatient setting as well. Total time taken is 35 minutes. History of present illness 38-year-old male came in because of syncope patient had a couple syncopal episodes. These syncopal episodes were followed by severe headache patient does have history of migraine with aura. Patient does have photophobia. Patient is on multiple medications with uncontrolled migraine. History of chronic migraines as he has migraine most of the days in a month. Patient is on 2 nonsteroidal anti-inflammatories along with Fioricet [place] Topamax for migraine. Patient denied any fever chills. Patient had an dysuria. EKG did not show any significant acute ST-T wave changes echocardiogram is being obtained computed tomography scan of the spine was opted which did not show any significant abnormality computed tomography scan was opted because of his fall from syncope patient fall is preceded by lightheadedness and he didn't have an of time to sit down for that he ended up having a syncopal episode which lasted for few seconds. Patient denied any seizure-like activity. CT of the head did not show any significant abnormality either. 06/12/2019 Patient underwent an echo which showed a normal EF of 55-60% and patient will follow-up with cardiology in the outpatient setting in one week. Patient states that he continues to have headache but is slightly better today. Patient will continue with only using naproxen along with Topamax at night, Elavil, magnesium oxide, Compazine and Benadryl as needed. Patient was seen by neurology and undergoing an EEG today. EEG was done but is pending and neurology recommending following up with his neurologist in the outpatient setting in 3-4 weeks. Discussed with the patient at length about discontinuing smoking and refraining from using any tobacco, or marijuana use. Also instructed the patient to use Compazine and Benadryl as needed and when he feels the aura to take Compazine to help minimize the headache. Patient will follow-up with primary care provider upon discharge. Patient will also need to reestablish with Dr. Renae as he now has insurance or will find another neurologist in town. On exam vital signs are stable. Temp is 97.6F, pulse is 76, respirations are 18, blood pressure 117/63, oxygen saturation is 100% on room air. Cardio S1, S2 are present. Respiratory system shows clear to auscultation. Abdomen is soft and nontender. Nervous system shows no focal deficits. Please refer to medication reconciliation sheet for a list of medications. Patient Condition at Discharge: Stable Plan - Discharge Summary New Discharge Prescriptions: New Amitriptyline HCl [Elavil] 25 mg PO HS 30 Days #30 tab Magnesium Oxide [Mag-Ox] 400 mg PO BID 30 Days #60 tab diphenhydrAMINE [Benadryl] 25 mg PO BID PRN #30 cap PRN Reason: Migraine Headache Prochlorperazine [Compazine] 10 mg PO Q8H PRN #30 tab PRN Reason: Migraine Headache Topiramate [Topamax] 100 mg PO HS 30 Days #30 tab Riboflavin (Vitamin B2) [Vitamin B-2] 50 mg PO DAILY 30 Days #30 tablet Continue Ranitidine HCl 150 mg PO HS Acetaminophen Tab [Tylenol] 650 mg PO Q6H PRN PRN Reason: Pain Naproxen [Naprosyn] 500 mg PO BID PRN 30 Days #60 tab PRN Reason: Headache Discontinued Topiramate [Topamax] 100 mg PO BID Butalb/APAP/Caff 50-325-40Mg [Fioricet 50-325-40] 1 - 2 tab PO Q4H PRN PRN Reason: Migraine Headache Ibuprofen 400 mg PO Q6H PRN PRN Reason: Pain Discharge Medication List Acetaminophen Tab [Tylenol] 650 mg PO Q6H PRN 06/10/19 [History] Ranitidine HCl 150 mg PO HS 06/10/19 [History] Amitriptyline HCl [Elavil] 25 mg PO HS 30 Days #30 tab 06/12/19 [Rx] Magnesium Oxide [Mag-Ox] 400 mg PO BID 30 Days #60 tab 06/12/19 [Rx] Naproxen [Naprosyn] 500 mg PO BID PRN 30 Days #60 tab 06/12/19 [Rx] Prochlorperazine [Compazine] 10 mg PO Q8H PRN #30 tab 06/12/19 [Rx] Riboflavin (Vitamin B2) [Vitamin B-2] 50 mg PO DAILY 30 Days #30 tablet 06/12/19 [Rx] Topiramate [Topamax] 100 mg PO HS 30 Days #30 tab 06/12/19 [Rx] diphenhydrAMINE [Benadryl] 25 mg PO BID PRN #30 cap 06/12/19 [Rx] Follow up Appointment(s)/Referral(s): , PCP [Other] - 06/17/19 8:30 am (Yime and date per pt) Wang Waer MD [STAFF PHYSICIAN] - 06/21/19 2:00 pm (Monday with LEAD CARE MANAGER) Lizy Renae MD [Medical Doctor] - 3 Weeks (Office is closed. Please call to schedule appointment) Patient Instructions/Handouts: Migraine Headache (GEN) Activity/Diet/Wound Care/Special Instructions: Activity Limited until follow-up Follow-up with Dr. Norberto Davies upon discharge Follow-up with neurologist in the outpatient setting in 2-3 weeks Continue with current medications Continue current diet Discharge Disposition: HOME SELF-CARE
--- NOTE | 2019-06-13 08:36 | EEG ---
ELECTROENCEPHALOGRAM REPORT PROCEDURE DATE: 06/12/2019 ELECTROENCEPHALOGRAM (EEG) REPORT: TECHNIQUE: A routine 18 channel EEG was performed with video using the 10/20 international electrode placement system. HISTORY: Syncope. Other medical history includes migraines and brachial plexus disorder. CURRENT MEDICATIONS: None. STUDY DURATION: 25 minutes. FINDINGS: BACKGROUND: The background activity consists of 9-10 Hz rhythmic waveforms symmetrically distributed through both posterior quadrants. ACTIVATION: Hyperventilation: Not performed. Photic stimulation: Symmetric driving seen. Sleep: Stages I and II sleep noted. ABNORMALITIES: None. Please note that 1 channel of this EEG was dedicated to EKG. It demonstrated a sinus rhythm. IMPRESSION: Normal EEG. No epileptiform activity was present. No seizures were recorded. MMODL / IJN: [id number] /
== END 2019-06-12 15:35 | disposition home or self-care (01) | DRG 103 ==
LOC: 3SCARD 21:31
PROVIDERS: ADMIT Internal Medicine; ATTEND Internal Medicine
DX: G43.909 Migraine, unspecified, not intractable, without status migrainosus (principal); G54.0 Brachial plexus disorders; F17.210 Nicotine dependence, cigarettes, uncomplicated; F32.9 Major depressive disorder, single episode, unspecified; F41.9 Anxiety disorder, unspecified; Z79.899 Other long term (current) drug therapy
CPT/HCPCS: 80053; 83735; 84484; 85025; 93306; 95816

== ENCOUNTER 2019-07-09 11:56 | Day surgery (SDC) | payer OTHER ==
[2019-07-04 11:26] VITALS: BMI 29.0
[~2019-07-09 11:56] MED LIST: SODIUM CHLORIDE 0.9% 1,000 ML IV SCH
[2019-07-09 12:25] VITALS: RESP 16; TEMP 98.1
[2019-07-09 14:40] VITALS: BP 118/76; PULSE 77
--- NOTE | 2019-07-09 14:57 | P.PCN ---
Preoperative Diagnosis: Indication: Syncope Baseline 12-lead EKG shows sinus mechanism, normal [place] interval, narrow QRS, normal QT interval, isolated T-wave inversions in lead 3 no delta or epsilon waves Baseline blood pressure was 109/83 mmHg, Baseline heart rate 80 bpm. In the supine position the patient did complain of feeling a little lightheaded and has been as well as having a slight headache. The patient was tilted upright at a 70 angle as per protocol. His symptoms resolved and he remained asymptomatic for the remainder of the procedure. His blood pressure and heart rate remained stable with no significant changes throughout the procedure. At the end of the procedure the patient was laid supine. Impression Normal 12-lead EKG Normal heart rate and blood pressure response to upright tilting , No evidence for neurocardiogenic syncope or dysautonomia
== END 2019-07-09 14:39 | disposition home or self-care (01) ==
LOC: CATHEP 11:56
PROVIDERS: ATTEND Internal Medicine Clinical Cardiac Electrophysiology
DX: R55 Syncope and collapse (principal); R51 Headache; G43.909 Migraine, unspecified, not intractable, without status migrainosus; E78.5 Hyperlipidemia, unspecified; F17.210 Nicotine dependence, cigarettes, uncomplicated; Z79.899 Other long term (current) drug therapy; Z79.1 Long term (current) use of non-steroidal anti-inflammatories (NSAID); Z82.49 Family history of ischemic heart disease and other diseases of the circulatory system
CPT/HCPCS: 93660